=== PATIENT | male | born 1985 | race Caucasian/White ===

== ENCOUNTER 2021-01-03 20:08 | Emergency (ER) | payer BC, OTHER ==
[2021-01-03] MEDS ORDERED: morphine INJ 10 MG/ML 1ML (SYR OR VIAL) IVP STA (20:58)
[2021-01-03] MEDS ORDERED: ONDANSETRON 4 MG/2 ML (SDV) Z0FRAN IVP ONE (21:00)
[2021-01-03] MEDS ORDERED: FAMOTIDINE 20MG/2ML IV (PEPCID) IVP SCH (21:00)
[2021-01-03] MEDS ORDERED: NS IV 1000 ML 1,000 ML IV SCH (21:00)
[2021-01-03 21:17] LABS: BASOPHILS % (AUTO) 1 % (0-10); EOSINOPHILS % (AUTO) 1 % (0-10); HEMATOCRIT 46 % (40-54); HEMOGLOBIN 15.9 G/DL (13.3-17.7); LYMPHOCYTES % (AUTO) 17 % (12-44); MEAN CORPUSCULAR HEMOGLOBIN 30 PG (25-34); MEAN CORPUSCULAR HGB CONC 35 G/DL (32-36); MEAN CORPUSCULAR VOLUME 87 FL (80-99); MONOCYTES % (AUTO) 11 % (0-12); NEUTROPHILS # (AUTO) 3.1 X 10^3 (1.8-7.8); NEUTROPHILS % (AUTO) 70 % (42-75); PLATELET COUNT 219 10^3/uL (130-400); WHITE BLOOD COUNT 4.4 10^3/uL (4.3-11.0)
[2021-01-03 21:18] LABS: LYMPHOCYTES # (AUTO) 0.8 X 10^3 (1.0-4.0); MONOCYTES # (AUTO) 0.5 X 10^3 (0.0-1.0)
[2021-01-03] MEDS ORDERED: IOHEXOL 350 MG/ML 150 ML (OMNIPAQUE 350) VIAL IV ONE (21:30)
[2021-01-03] MEDS ORDERED: HOLD METFORMIN - RECEIVED CONTRAST 20 ML VIAL IV SCH (21:30)
[2021-01-03] MEDS ORDERED: CATHETER FLUSH 10 ML SYR IV PRN (21:30)
[2021-01-03] MEDS ORDERED: NS 100 ML (IVPB) BAG IV ONE (21:30)
[2021-01-03 21:32] LABS: ALANINE AMINOTRANSFERASE 73 U/L (0-55); ALBUMIN 4.4 GM/DL (3.2-4.5); ALKALINE PHOSPHATASE 87 U/L (40-136); BILIRUBIN,TOTAL 0.6 MG/DL (0.1-1.0); BUN/CREATININE RATIO 14; CALCIUM 9.3 MG/DL (8.5-10.1); CARBON DIOXIDE 24 MMOL/L (21-32); CHLORIDE 100 MMOL/L (98-107); CREATININE SERUM 1.09 MG/DL (0.60-1.30); GFR ESTIMATED > 60; GLUCOSE 96 MG/DL (70-105); SODIUM 136 MMOL/L (135-145); TOTAL PROTEIN 7.4 GM/DL (6.4-8.2)
[2021-01-03 21:33] LABS: LIPASE 21 U/L (8-78)
[2021-01-03 21:37] LABS: POTASSIUM 4.3 MMOL/L (3.6-5.0)
[2021-01-03] MEDS ORDERED: LABETALOL HCL 20 MG/4 ML VIAL IV ONE ×3 (22:15→23:00)
--- NOTE | 2021-01-03 23:37 | ED General ---
General Chief Complaint: Fever-Adult/Adol Stated Complaint: COVID+ Nursing Triage Note: Pt tested positive on Dec 24 with Covid. Pt states he has been running a fever for the past 4 days and complains of a cough Nursing Sepsis Screen: No Definite Risk Source of Information: Patient Exam Limitations: No Limitations History of Present Illness Date Seen by Provider: Jan 03, 2021 Time Seen by Provider: 21:00 Initial Comments Patient is a 35-year-old Covid positive male with a history of psoriasis currently on immune modulator who was diagnosed 10 days ago who presents with midthoracic back pain, generalized weakness, fatigue, shortness of breath and body aches. Patient denies history of asthma. He denies nausea vomiting sweats. No chest pain. Reports some abdominal pain. No leg pain or swelling. No history of DVT or PE. No other acute symptoms or complaints. Timing/Duration: 4-6 Hours, Changing Over Time, Other (10 days) Severity: Moderate Associated Systoms: Other Allergies and Home Medications Allergies Coded Allergies: No Known Drug Allergies (Unverified , 01/03/21) Patient Home Medication List Home Medication List Reviewed: Yes Review of Systems Review of Systems Constitutional: see HPI EENTM: see HPI Respiratory: see HPI Cardiovascular: see HPI Gastrointestinal: see HPI Genitourinary: see HPI Musculoskeletal: see HPI Skin: see HPI Psychiatric/Neurological: See HPI Hematologic/Lymphatic: See HPI Immunological/Allergic: see HPI All Other Systems Reviewed Negative Unless Noted: Yes Past Hpxrcou-Jawqqy-Nxhhiu Hx Past Med/Social Hx: Reviewed Nursing Past Med/Soc Hx Patient Social History Alcohol Use: Denies Use Smoking Status: Never a Smoker Recent Infectious Disease Expo: No Recent Hopitalizations: No Past Medical History Surgeries: No Respiratory: No Cardiac: No Neurological: No Genitourinary: No Gastrointestinal: No Musculoskeletal: No Endocrine: No HEENT: No Cancer: No Psychosocial: No Integumentary: No Blood Disorders: No Physical Exam Vital Signs Vital Signs - First Documented 01/03/21 20:20 Temp 38.4 Pulse 95 Resp 18 B/P (MAP) 193/127 (149) Pulse Ox 97 O2 Delivery Room Air Capillary Refill : Less Than 3 Seconds Height, Weight, BMI Height: '" Weight: lbs. oz. kg; BMI Method: General Appearance: Moderate Distress Eyes: Bilateral Eye Normal Inspection, Bilateral Eye PERRL, Bilateral Eye EOMI HEENT: PERRL/EOMI Neck: Normal Inspection, Non Tender, Supple Respiratory: Decreased Breath Sounds, Rhonci Cardiovascular: Regular Rate, Rhythm Gastrointestinal: Non Tender, Soft Back: No CVA Tenderness, Other Extremity: Normal Capillary Refill, No Calf Tenderness Neurologic/Psychiatric: Alert, Oriented x3, Normal Mood/Affect, news copy editor II-XII Norm as Tested Focused Exam Sepsis Stage: Ruled Out Progress/Results/Core Measures Suspected Sepsis Recent Fever Within 48 Hours: No Infection Criteria Present: None New/Unexplained Altered Menta: No Sepsis Screen: No Definite Risk SIRS Temperature: Pulse: 95 Respiratory Rate: 18 Laboratory Tests 01/03/21 21:06: White Blood Count 4.4 Blood Pressure 193 /127 Mean: 149 Laboratory Tests 01/03/21 21:06: Creatinine 1.09, Platelet Count 219, Total Bilirubin 0.6 Results/Orders Lab Results Laboratory Tests Test 01/03/21 21:06 Range/Units White Blood Count 4.4 4.3-11.0 10^3/uL Red Blood Count 5.25 4.35-5.85 10^6/uL Hemoglobin 15.9 13.3-17.7 G/DL Hematocrit 46 40-54 % Mean Corpuscular Volume 87 80-99 FL Mean Corpuscular Hemoglobin 30 25-34 PG Mean Corpuscular Hemoglobin Concent 35 32-36 G/DL Red Cell Distribution Width 12.7 10.0-14.5 % Platelet Count 219 130-400 10^3/uL Mean Platelet Volume 9.0 7.4-10.4 FL Immature Granulocyte % (Auto) 0 % Neutrophils (%) (Auto) 70 42-75 % Lymphocytes (%) (Auto) 17 12-44 % Monocytes (%) (Auto) 11 0-12 % Eosinophils (%) (Auto) 1 0-10 % Basophils (%) (Auto) 1 0-10 % Neutrophils # (Auto) 3.1 1.8-7.8 X 10^3 Lymphocytes # (Auto) 0.8 L 1.0-4.0 X 10^3 Monocytes # (Auto) 0.5 0.0-1.0 X 10^3 Eosinophils # (Auto) 0.0 0.0-0.3 10^3/uL Basophils # (Auto) 0.0 0.0-0.1 10^3/uL Immature Granulocyte # (Auto) 0.0 0.0-0.1 10^3/uL Sodium Level 136 135-145 MMOL/L Potassium Level 4.3 3.6-5.0 MMOL/L Chloride Level 100 98-107 MMOL/L Carbon Dioxide Level 24 21-32 MMOL/L Anion Gap 12 5-14 MMOL/L Blood Urea Nitrogen 15 7-18 MG/DL Creatinine 1.09 0.60-1.30 MG/DL Estimat Glomerular Filtration Rate > 60 BUN/Creatinine Ratio 14 Glucose Level 96 70-105 MG/DL Calcium Level 9.3 8.5-10.1 MG/DL Corrected Calcium 9.0 8.5-10.1 MG/DL Total Bilirubin 0.6 0.1-1.0 MG/DL Aspartate Amino Transf (AST/SGOT) 40 H 5-34 U/L Alanine Aminotransferase (ALT/SGPT) 73 H 0-55 U/L Alkaline Phosphatase 87 40-136 U/L Total Protein 7.4 6.4-8.2 GM/DL Albumin 4.4 3.2-4.5 GM/DL Lipase 21 8-78 U/L My Orders Orders - LEILA GROVE DO Cbc With Automated Diff (01/03/21 20:47) Comprehensive Metabolic Panel (01/03/21 20:47) Chest 1 View Ap/Pa Only (01/03/21 20:47) Lipase (01/03/21 20:47) Ns Iv 1000 Ml (Sodium Chloride 0.9%) (01/03/21 21:00) Famotidine Injection (Pepcid Injection) (01/04/21 09:00) Famotidine Injection (Pepcid Injection) (01/03/21 21:00) Morphine Injection (Morphine Injection (01/03/21 20:58) Ondansetron Injection (Zofran Injectio (01/03/21 21:00) Ct Angio Chest/Abd W (01/03/21 21:14) Iohexol Injection (Omnipaque 350 Mg/Ml 1 (01/03/21 21:30) Received Contrast (Hold Metformin- Contr (01/03/21 21:30) Sodium Chloride Flush (Catheter Flush Sy (01/03/21 21:30) Ns (Ivpb) (Sodium Chloride 0.9% Ivpb Bag (01/03/21 21:30) Labetalol Injection (Normodyne Injection (01/03/21 22:15) Labetalol Injection (Normodyne Injection (01/03/21 22:15) Labetalol Injection (Normodyne Injection (01/03/21 23:00) Medications Given in ED Current Medications Medications Dose Ordered Sig/Raman Route Start Time Stop Time Status Last Admin Dose Admin Iohexol 125 ml ONCE ONCE IV 01/03/21 21:30 01/03/21 21:31 DC 01/03/21 23:01 125 ML Labetalol HCl 20 mg ONCE ONCE IV 01/03/21 22:15 01/03/21 22:16 DC 01/03/21 22:17 20 MG Labetalol HCl 20 mg ONCE ONCE IV 01/03/21 23:00 01/03/21 23:01 DC 01/03/21 23:01 20 MG Ondansetron HCl 4 mg ONCE ONCE IVP 01/03/21 21:00 01/03/21 21:01 DC 01/03/21 21:07 4 MG Sodium Chloride 100 ml ONCE ONCE IV 01/03/21 21:30 01/03/21 21:31 DC 01/03/21 23:01 80 ML Vital Signs/I&O 01/03/21 20:20 Temp 38.4 Pulse 95 Resp 18 B/P (MAP) 193/127 (149) Pulse Ox 97 O2 Delivery Room Air Capillary Refill : Less Than 3 Seconds Blood Pressure Mean: 149 Departure Communication (Admissions) CT angio chest abdomen pelvis: No PE or dissection per radiology report. Pulmonary findings consistent with atypical infection/Covid. Patient symptoms, blood pressure improved with treatment. Suspect back pain is either musculoskeletal or related to Covid infection. Will place on antibiotics, pain medication and initiate blood pressure therapy. Patient instructed to follow-up with PCP for further management of blood pressure. Return precautions reviewed. Patient verbalizes understanding agreement discharge instructions prior to departure. Impression Primary Impression: COVID-19 Additional Impressions: Back pain Accelerated hypertension Disposition: HOME, SELF-CARE Condition: Stable Departure-Patient Inst. Decision time for Depature: 23:39 Referrals: SUNSHINE MARIN MD (PCP/Family) Primary Care Physician Patient Instructions: High Blood Pressure (DC), Coronavirus Disease 2019 (COVID-19) Overview, Acute Pain, Adult (DC) Add. Discharge Instructions: Please take newly prescribed medications as directed and follow-up with your PCP once Covid symptoms resolved for further management of your blood pressure. In the meantime if you develop new or worsening symptoms, return to the emergency department. All discharge instructions reviewed with patient and/or family. Voiced understanding. Scripts Amlodipine Besylate (Norvasc) 10 Mg Tablet 10 MG PO DAILY, #30 TAB Prov: LEILA GROVE DO 01/03/21 Hydrocodone/Acetaminophen (Hydrocodone-Acetamin 5-325 mg) 1 Each Tablet 1 TAB PO Q4H PRN for PAIN-MODERATE (5-7), #15 TAB Prov: LEILA GROVE DO 01/03/21 Doxycycline Hyclate (Doxycycline Hyclate) 100 Mg Tablet 100 MG PO BID, #20 TAB 0 Refills Prov: LEILA GROVE DO 01/03/21 LEILA GROVE DO Jan 03, 2021 23:36
[2021-01-03] MEDS ORDERED: AMLO10TA4 PO (23:41)
[2021-01-03] MEDS ORDERED: ACHD5005 PO (23:41)
[2021-01-03] MEDS ORDERED: DOXY100T2 PO (23:41)
[2021-01-03 23:47] VITALS: BP 158/116
--- NOTE | 2021-01-04 06:50 | Diagnostic Imaging Report ---
Portable erect AP chest at 9:06, Indication: COVID positive, hypertension There are no prior studies available for comparison. The study is less than optimal as the patient is rotated and there is shallow inspiration. Allowing for these technical factors, the heart size is within normal limits. There are faint alveolar/interstitial pulmonary infiltrates involving both lungs. I suspect these are secondary to pneumonia/atelectasis related to the patient's diagnosis of COVID 19. The mediastinum is not widened. The osseous structures are intact. Impression: 1. The findings do suggest bilateral pneumonia/atelectasis. Most likely this is related to the patient's diagnosis of COVID 19. 2. Reportedly, CTA of the chest is pending for further study. Dictated by: Dictated on workstation # [id number]
--- NOTE | 2021-01-04 07:07 | Diagnostic Imaging Report ---
PROCEDURE: CT angiography of the abdomen and chest with and without contrast. TECHNIQUE: After intravenous administration of contrast, thin section axial CT angiography of the abdomen and chest were obtained. 3D MIP reformats were provided. Auto Exposure Controls were utilized during the CT exam to meet ALARA standards for radiation dose reduction. INDICATION: COVID 19, abdominal pain, hypertension. There are no prior CTA chest examinations available for comparison. The plain film examination of the chest performed prior to the study did suggest bilateral pneumonia/atelectasis related to the patient's diagnosis of COVID 19. On this exam there are indeed groundglass alveolar/interstitial pulmonary infiltrates involving both lungs, particularly left lung base. This appearance does suggest COVID 19. There is no pleural effusion identified. The heart size is within normal limits. The aorta is not abnormally dilated. There is no defect within the pulmonary arteries to indicate a pulmonary embolus. There is prominent 1.0 x 2.2 cm anterior mediastinal node. This is nonspecific. The thyroid gland was obscured by streak artifact. The sections through the upper abdomen show the liver is of lower density than usually seen. This does suggest fatty metamorphosis. The liver is prominent but not enlarged. However there is splenomegaly. The spleen measures 15.7 cm in length. The etiology of splenomegaly is not certain. The pancreas, gallbladder, kidneys, aorta and inferior vena cava and portal vein are unremarkable for an acute abnormality. The stomach is not well distended and difficult to assess. There is no acute abnormality of the upper abdomen. The bone windows are unremarkable for fracture or for destructive lesion. IMPRESSION: 1. There is bilateral pneumonia/atelectasis. Most likely this is due to the patient's diagnosis of COVID 19. 2. There is no acute cardiopulmonary abnormality identified otherwise. 3. There is no acute abdomen of the abdomen identified either. 4. 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 5. I agree with the [facility] report with the exception of the comment regarding the spleen. The [facility] report did not note any splenomegaly. However I do feel the spleen is enlarged. Called to Dr. Vargas at 7:03 a.m. by cvb. Dictated by: Dictated on workstation # [id number]
[2021-01-04] MEDS ORDERED: FAMOTIDINE 20MG/2ML IV (PEPCID) IVP SCH (09:00)
== END 2021-01-03 23:49 | disposition home or self-care (01) ==
LOC: ER FS 20:12
DX: U07.1 COVID-19 (principal); M54.6 Pain in thoracic spine; I10 Essential (primary) hypertension
CPT/HCPCS: 36415; 71045; 71275; 74175; 80053; 83690; 85025